=== PATIENT | female | born 1960 | race Caucasian/White ===

== ENCOUNTER 2016-11-04 11:27 | Day surgery (SDC) | payer OTHER ==
[~2016-11-04] VITALS: Ht 154.9 cm; Wt 88.9 kg
[2016-11-04] MEDS ORDERED: NOVO7030 SC (11:54)
[2016-11-04] MEDS ORDERED: IBUP-1542 PO (11:54)
[2016-11-04] MEDS ORDERED: BENA40TA41 PO (11:54)
[2016-11-04] MEDS ORDERED: LORA2ORA2 PO (11:54)
[2016-11-04] MEDS ORDERED: DAL15 GTB (11:54)
[2016-11-04] MEDS ORDERED: QUET400T PO (11:54)
[2016-11-04] MEDS ORDERED: RISP4TAB2 PO (11:54)
[2016-11-04 12:00] VITALS: Ht 154.9 cm; Wt 88.9 kg
[2016-11-04 12:05] VITALS: BP 135/65; PULSE 93; RESP 24
[2016-11-04] MEDS ORDERED: PROPOFOL 20 ML ONE (13:58)
[2016-11-04] MEDS ORDERED: MIDAZOLAM 1 MG/ML 2 ML INJ ONE (13:59)
[2016-11-04] MEDS ORDERED: FENTAnyl 50 MCG/ML VIAL ONE (13:59)
[2016-11-04 14:40] VITALS: BP 115/84; PULSE 90; RESP 24
--- NOTE | 2016-11-04 19:05 | GILP ---
DATE OF PROCEDURE: 11/04/2016 PROCEDURE INDICATIONS: The patient is being evaluated for colorectal cancer screening. PREMEDICATION: Monitored anesthesia care by anesthesiologist. INSTRUMENT USED: Olympus colonoscope. PREPARATION: Adequate. TECHNIQUE: After informed consent, with the patient/relatives understanding the procedure, its indic ations potential risks and complications, including but not limited to: allergic reaction, bleeding, perforation, infection, missed lesions and after all pertinent questions were answered to the patie nt's satisfaction, the patient/relatives signed the witnessed informed consent. Following this, premedication was administered slowly IV push by under careful cardiovascular and re spiratory monitoring with pulse oximetry, automatic blood pressure and equipment monitor phototypesetting. Once the sedativ e effect was achieved, the patient was placed in the left lateral decubitus position, digital rectal examination was performed. The colonoscope was then introduced and advanced under visual control th roughout all segments of the colon including: the rectum, sigmoid, descending colon, splenic flexure , transverse colon, hepatic flexure, ascending colon and finally reaching the cecum which was clearl y identified by transillumination, finger indentation and the ileocecal valve. Careful examination o f the mucosa of the lower gastrointestinal tract both on insertion as well as withdrawal of the inst rument disclosed the following findings: Rectal Examination: No evidence of perirectal disease, no masses. Colonic Mucosa: The colonic mucosa entirely unremarkable throughout. The ileocecal valve was clear ly identified and appears unremarkable. The instrument was withdrawn reexamining the mucosa in deta il. No additional abnormalities are noted with exception of moderate-sized internal hemorrhoids. The instrument was then withdrawn, the patient tolerated the procedure well and was transferred out of the [facility]oscopy Suite awake and in good condition to continue recovery under observation. IMPRESSION: 1. Normal colonic mucosa to cecum. 2. Moderate-sized internal hemorrhoids. PLAN: The patient will be followed up as an outpatient. Annual Hemoccult stool testing is recommen ded. High fiber diet is recommended as well and screening colonoscopy in 10 years is advisable. Dictated By: MARILYN FLOYD Conf#: [id number] DID#: [id number]
== END 2016-11-04 14:35 | disposition home or self-care (01) ==
LOC: GIL 11:27
PROVIDERS: ATTEND Internal Medicine Gastroenterology
DX: Z12.11 Encounter for screening for malignant neoplasm of colon (principal); K64.8 Other hemorrhoids; I10 Essential (primary) hypertension; E11.9 Type 2 diabetes mellitus without complications; E66.9 Obesity, unspecified; Z68.37 Body mass index [BMI] 37.0-37.9, adult
CPT/HCPCS: 45378; 82962; J2250; J3010; Z7610